=== PATIENT | female | born 1970 | race Caucasian/White ===

== ENCOUNTER → 2017-07-13 | Outpatient (CLI) | payer BC ==
--- NOTE | 2017-07-13 16:57 | MAM ---
EXAM DESCRIPTION: 3D Diagnostic, Bilateral : Digital Mammography. CLINICAL HISTORY: 46 years Female ABNORMAL MAMMOGRAM . Palpates lesion lateral to the right nipple. Remote family history of breast cancer. Premenopausal. No HRT. COMPARISON: Right breast targeted ultrasound following this examination. No prior mammograms available. No prior reports available. TECHNIQUE: Bilateral CC and MLO projection full-field images, 3-D tomosynthesis digital mammographic technique. Also bilateral synthesized CC/ MLO full-field images. CAD not utilized. FINDINGS: The breast parenchymal density pattern is: Extremely dense breast tissue, which lowers the sensitivity of mammography. Minimal skin thickening right breast around the nipple but no nipple retraction. Question of focal asymmetry approximately 2 cm from the nipple, at the 930-1000 clock position. No focal, stellate mass or density, focal asymmetry , and no suspicious microcalcifications left breast. ULTRASOUND: Scanning of the upper-outer quadrant of the right breast. The skin marker is located at the 930 clock position 1 cm from the nipple. Almost completely homogeneous fibroglandular echotexture. Several regions were palpable on the upper outer quadrant. No distinct solid mass or cyst. No parenchymal edema or large calcification. No overlying skin changes. No abnormal soft tissue vascularity. IMPRESSION: BI-RADS CATEGORY: 3 - PROBABLY BENIGN. Management: Short interval (6-month) follow-up diagnostic digital mammography of the right breast with targeted right breast ultrasound. The FINDINGS and the FOLLOW-UP plan were reviewed in person with the patient after the examination. Written communication explaining the IMPRESSION and FOLLOW-UP will be mailed to the patient and referring care provider. Electronically signed by: Bj Garcia MD 07/13/2017 4:56 PM CDT
--- NOTE | 2017-07-14 08:13 | US ---
EXAM DESCRIPTION: Breast,Right: Ultrasound CLINICAL HISTORY: 46 yearsFemaleBREAST LUMP COMPARISON: Digital diagnostic 3-D tomosynthesis bilateral breast on this visit. TECHNIQUE: Transcutaneous scanning of the right lateral breast utilizing two-dimensional and Doppler modes. Scanning performed by the blend plant operator and Dr. Garcia. FINDINGS: Scanning of the upper-outer quadrant of the right breast. The skin marker is located at the 930 clock position 1 cm from the nipple. Almost completely homogeneous fibroglandular echotexture. Several regions were palpable on the upper outer quadrant. No distinct solid mass or cyst. No parenchymal edema or large calcification. No overlying skin changes. No abnormal soft tissue vascularity. IMPRESSION: 1. Bi-Rads Category 3: Probably Benign Findings. 2. Please refer to bilateral 3-D tomosynthesis diagnostic mammographic examination and report on this visit. The FINDINGS and the FOLLOW-UP plan were reviewed in person with the patient after the examination. Written communication explaining the IMPRESSION and FOLLOW-UP will be mailed to the patient and referring care provider. Electronically signed by: Bj Garcia MD 07/14/2017 8:11 AM CDT
== END ==
LOC: MAMMO 13:31
PROVIDERS: ATTEND Obstetrics & Gynecology
DX: N63.0 Unspecified lump in unspecified breast (principal)
CPT/HCPCS: 76641; 77066; G0279

== ENCOUNTER → 2018-08-23 | Outpatient (CLI) | payer BC ==
--- NOTE | 2018-08-24 15:12 | MAM ---
EXAM DESCRIPTION: 3D Diagnostic, Bilateral (accession [id number]), Breast,Right (accession [id number]): Ultrasound CLINICAL HISTORY: 47 yearsFemaleBREAST LUMP. 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 Area of concern upper outer quadrant right breast is enlarging since the prior study. COMPARISON: Other TECHNIQUE: Bilateral LM, CC, and MLO projection full-field images, digital mammographic tomosynthesis technique. Bilateral 2-D digital full-field MLO images. Spot compression before and after tomosynthesis right breast MLO projection. CAD not utilized. . Transcutaneous scanning of the right breast utilizing decker-scale and Doppler modes. Scanning performed by the ux architect and Dr. Garcia. FINDINGS: The breast parenchymal density pattern is: Extremely dense breast tissue, which lowers the sensitivity of mammography. No skin thickening or nipple retraction . Skin marker visualized at the location of palpable mass anterolateral right breast. Suggestion of focal density and architectural distortion with a marker is located. Most dense tissues in the retroareolar regions bilaterally and stable. No new focal, stellate mass or density, focal asymmetry , and no suspicious microcalcifications left breast. Ultrasound: Scanning of the right breast 9:00 to 10:00 to 4 cm from the nipple and also the retroareolar right breast at the 4:00 position. Diffuse fibroglandular tissues are noted. At the region of palpation, is ill-defined, poorly marginated, hypoechoic tissue with mostly posterior shadowing and minimal posterior echogenicity. Nonvascular. No cystic fluid collections. This area of involvement is increased in size since the prior study. No large calcifications or parenchymal edema. IMPRESSION: More likely to represent enlarging region of diabetic mastopathy versus underlying neoplasm. ASSESSMENT: BI-RADS CATEGORY 4: SUSPICIOUS. SUB-CATEGORY 4A - LOW SUSPICION FOR MALIGNANCY. RECOMMENDATIONS/FOLLOW-UP: Surgical consultation and tissue diagnosis should be considered. The FINDINGS and FOLLOW-UP plan were reviewed in person with the patient following the examination. Written communication explaining the IMPRESSION and FOLLOW-UP will be mailed to the patient and referring care provider. Electronically signed by: Bj Garcia MD 08/24/2018 3:09 PM CDT
== END ==
LOC: MAMMO 13:30
PROVIDERS: ATTEND Obstetrics & Gynecology
DX: R92.8 Other abnormal and inconclusive findings on diagnostic imaging of breast (principal)
CPT/HCPCS: 77066; G0279

== ENCOUNTER → 2018-08-23 | Outpatient (CLI) | payer BC | LOC: US 13:26 | PROVIDERS: ATTEND Obstetrics & Gynecology | DX: R92.8 Other abnormal and inconclusive findings on diagnostic imaging of breast (principal) ==